=== PATIENT | male | born 2000 | race Caucasian/White ===

== ENCOUNTER 2018-11-24 07:12 | Emergency (ER) | payer MEDICAID ==
[~2018-11-24] VITALS: Ht 172.7 cm; Wt 55.8 kg
[2018-11-24 07:35] VITALS: BP_SYST 140
--- NOTE | 2018-11-24 07:38 | NUR ---
Patient to ER bed 3 to gown for evaluation. Side rails up. Report given to María WOOD.
--- NOTE | 2018-11-24 08:08 | NUR ---
Pt received laying in bed with complaints of right shoulder pain. Starting X 2 days ago after going to [place]. Pt is able to move fingers, denies any numbness, able to move hand to elbow. 8/10 pain when moving.
--- NOTE | 2018-11-24 08:08 | NUR ---
ER at bedside examining patient.
[2018-11-24] MEDS ORDERED: IBUPROFEN 800 MG TABLET PO ONE (08:15)
--- NOTE | 2018-11-24 08:34 | NUR ---
Pt medicated, will continue to monitor
--- NOTE | 2018-11-24 08:38 | NUR ---
XR at bedside with pt
--- NOTE | 2018-11-24 10:05 | NUR ---
Right shoulder - Large size Shoulder Immobilizer placed on pts right arm at a 90 degree angle. Pt denies any compliants of distress.
--- NOTE | 2018-11-24 10:54 | NUR ---
Patient given written and verbal discharge instructions and verbalizes understanding. ER MD discussed with patient the results and treatment provided. Patient in stable condition. ID arm band removed. Rx of Motrin given. Patient educated on pain management and to follow up with PMD. Pain Scale 2. Opportunity for questions provided and answered. Medication side effect fact sheet provided.
[2018-11-24 11:34] VITALS: BP_SYST 118
== END 2018-11-24 10:54 | disposition home or self-care (01) ==
LOC: SED 07:12
DX: S46.911A Strain of unspecified muscle, fascia and tendon at shoulder and upper arm level, right arm, initial encounter (principal); X58.XXXA Exposure to other specified factors, initial encounter; Y93.89 Activity, other specified; Y92.89 Other specified places as the place of occurrence of the external cause; Y99.8 Other external cause status
CPT/HCPCS: 73030; 99283